=== PATIENT | female | born 1995 | race Caucasian/White ===

== ENCOUNTER 2018-03-01 06:02 | Inpatient (IN) | payer SELFPAY ==
[2018-03-01] MEDS ORDERED: Sodium Chloride 0.9% 10 ML Syringe FLUSH PRN (06:55)
[2018-03-01] MEDS ORDERED: Ondansetron 4 MG/2 ML SDV IVPUSH PRN (06:55)
[2018-03-01] MEDS ORDERED: Nalbuphine 20 MG/ML 1 ML Syringe IVPUSH PRN (06:55)
[2018-03-01] MEDS ORDERED: fentaNYL 100 MCG/2 ML SDV EPIDUR PRN (06:57)
[2018-03-01] MEDS ORDERED: diphenhydrAMINE 50 MG/ML SDV IVPUSH PRN (06:57)
--- NOTE | 2018-03-01 06:57 | PCM.LDHP ---
L&D History of Present Illness - General Date of Service: 03/01/18 Admit Problem/Dx: Patient Status Order with Admit Dx/Problem 03/01/18 06:55 Patient Status [ADT] Routine Admission Diagnosis/Problem Admission Diagnosis/Problem Normal labor Source of Information: Patient History Limitations: Reports: No Limitations - History of Present Illness Introduction:: Patient is a 23 y/o at 38 5/7 wks who presents this AM in labor. States contractions started around 0300 this AM. Otherwise doing well. No LOF. Has a history fo for breech (identified when patient in labor) and then a repeat when presented in labor as was uncertain about . Is planned for a next week, but now considering - Related Data Allergies/Adverse Reactions: Allergies Allergy/AdvReac Type Severity Reaction Status Date / Time Penicillins AdvReac Nausea Verified 03/01/18 07:01 Home Medications: Home Meds PNV95/Ferrous Fumarate/FA [ Tablet] 1 each PO DAILY 03/01/18 [History] Past Medical History [employer]ER History: Reports: : 3 Para: 2 LMP (Approximate): - Past Surgical History Female Surgical History: Reports: Section (x2) Social & Family History - Tobacco Use Smoking Status *Q: Never Smoker - Alcohol Use Alcohol Use History: No - Recreational Drug Use Recreational Drug Use: No H&P Review of Systems - Review of Systems: Review Of Systems: See Below General: Reports: No Symptoms Pulmonary: Reports: No Symptoms Cardiovascular: Reports: No Symptoms Gastrointestinal: Reports: No Symptoms Genitourinary: Reports: No Symptoms Musculoskeletal: Reports: No Symptoms Neurological: Reports: No Symptoms L&D Exam - Exam Exam: See Below - OB Specific Contraction Intensity: Moderate Movement: Active Heart Tones: Present Heart Tones per Min: 150 Heart Rate (FHR) Variability: Moderate (6-25 bmp) Presentation: Vertex - Bowie Score Bowie Score Cervix Position: Midposition Bowie Score Consistency: Soft Bowie Score Effacement: 51-70% Bowie Score Dilation: 3-4 cm Bowie Score 's Station: -2 Bowie Score Total: 8 - Exam General: Alert, Oriented, Cooperative Lungs: Clear to Auscultation, Normal Respiratory Effort Cardiovascular: Regular Rate, Regular Rhythm GI/Abdominal Exam: Soft, Non-Tender Genitourinary: Normal external exam Extremities: Normal Inspection Skin: Warm, Dry, Intact - Patient Data Result Diagrams: 03/01/18 07:00 - Problem List (1) 38 weeks gestation of SNOMED Code(s): 23148004 ICD Code: Z3A.38 - 38 WEEKS GESTATION OF Status: Acute Current Visit: Yes (2) Normal labor SNOMED Code(s): 47828642 ICD Code: O80 - ENCOUNTER FOR FULL-TERM UNCOMPLICATED DELIVERY; Z37.9 - OUTCOME OF DELIVERY, UNSPECIFIED Status: Acute Current Visit: Yes (3) History of SNOMED Code(s): 547272746 ICD Code: Z98.891 - HISTORY OF UTERINE SCAR FROM PREVIOUS SURGERY Status: Acute Current Visit: Yes (4) Desires (vaginal after ) trial SNOMED Code(s): 621159729, 801771002 ICD Code: O34.219 - MATERNAL CARE FOR UNSP TYPE SCAR FROM PREVIOUS DEL Status: Acute Current Visit: Yes Problem List Initiated/Reviewed/Updated: Yes Orders Last 24hrs: Active Orders 24 hr Category Date Time Status Patient Status [ADT] Routine ADT 03/01/18 06:55 Ordered Activity as Tolerated [RC] PFP Care 03/01/18 06:55 Ordered Communication Order [RC] ASDIRECTED Care 03/01/18 06:55 Ordered Heart Tones [RC] ASDIRECTED Care 03/01/18 06:55 Ordered Non Stress Test [RC] PER UNIT ROUTINE Care 03/01/18 06:55 Ordered Notify Provider [RC] PFP Care 03/01/18 06:55 Ordered Notify Provider [RC] PRN Care 03/01/18 06:55 Ordered Peripheral IV Care [RC] . DIRECTED Care 03/01/18 06:55 Ordered Vital Signs [RC] PER UNIT ROUTINE Care 03/01/18 06:55 Ordered Clear Liquid Diet [DIET] Diet 03/01/18 Breakfast Ordered CBC W/O DIFF,HEMOGRAM [HEME] Routine Lab 03/01/18 06:55 Ordered RAPID PLASMA REAGIN,RPR [CHEM] Routine Lab 03/01/18 06:55 Ordered TYPE AND SCREEN [BBK] Routine Lab 03/01/18 06:55 Ordered Lactated Ringers [Ringers, Lactated] 1,000 ml Med 03/01/18 07:00 Ordered IV ASDIRECTED Nalbuphine [Nubain] Med 03/01/18 06:55 Ordered 10 mg IVPUSH Q2H PRN Ondansetron [Zofran] Med 03/01/18 06:55 Ordered 4 mg IVPUSH Q4H PRN Oxytocin/Lactated Ringers [Pitocin in LR 10 Units/1,000 Med 03/01/18 07:00 Ordered ML] 10 unit in 1,000 ml IV .CONTINUOUS Sodium Chloride 0.9% [Saline Flush] Med 03/01/18 06:55 Ordered 10 ml FLUSH ASDIRECTED PRN Electronic Heart Tones Ext w TOCO [WOMSER] Ot 03/01/18 06:55 Ordered Routine Electronic Heart Tones Internal [WOMSER] Per Unit Ot 03/01/18 06:55 Ordered Routine Peripheral IV Insertion Adult [OM.PC] Routine Ot 03/01/18 06:55 Ordered Resuscitation Status Routine Resus Stat 03/01/18 06:55 Ordered Assessment/Plan Comment:: Patient presents in active labor. Reviewed options of management going forward. Does want to do a trial of labor. Aware of risks of uterine rupture. Will monitor closely. If any concerns would need to proceed with RLTCS. Labs ordered. Epidural for pain management. GBS negative, no need for antibiotics
[2018-03-01] MEDS ORDERED: Oxytocin/Lactated Ringers 10 UNIT/1,000 ML BAG IV SCH (07:00)
[2018-03-01] MEDS: Lactated Ringers 1,000 ML IV SCH ×6 (07:18→13:59)
[2018-03-01] MEDS: Bupivacaine/fentaNYL/NS 100 ML Bag EPIDUR SCH ×2 (07:39→16:25)
--- NOTE | 2018-03-01 07:44 | PCM.PREANE ---
Preanesthetic Assessment - Procedure Proposed Procedure: jefry - Anesthesia/Transfusion/Family Hx Anesthesia History: Prior Anesthesia Without Reaction Family History of Anesthesia Reaction: No Transfusion History: No Prior Transfusion(s) - Review of Systems General: No Symptoms Pulmonary: No Symptoms Cardiovascular: No Symptoms Gastrointestinal: No Symptoms Neurological: No Symptoms Other: Reports: None - Physical Assessment NPO Status Date: 03/01/18 NPO Status Time: 21:00 (ice chips today) Respiratory Rate: 18 Vital Signs: Last Vital Signs Temp 98.5 F 03/01/18 06:39 Pulse 102 H 03/01/18 06:39 Resp 18 03/01/18 06:39 BP 112/72 03/01/18 06:39 Pulse Ox Height: 5 ft 2 in Weight: 68.901 kg ASA Class: 2 Mental Status: Alert & Oriented x3 Airway Class: Mallampati = 1 Dentition: Reports: Normal Dentition Thyro-Mental Finger Breadths: 3 Mouth Opening Finger Breadths: 3 ROM/Head Extension: Full Lungs: Clear to Auscultation, Normal Respiratory Effort Cardiovascular: Regular Rate, Regular Rhythm - Lab Values: Laboratory Last Values WBC 12.68 K/mm3 (3.98-10.04) H 03/01/18 07:00 RBC 3.85 M/mm3 (3.98-5.22) L 03/01/18 07:00 Hgb 12.0 gm/L (11.2-15.7) 03/01/18 07:00 Hct 36.6 % (34.1-44.9) 03/01/18 07:00 MCV 95.1 fl (79.4-94.8) H 03/01/18 07:00 MCH 31.2 pg (25.6-32.2) 03/01/18 07:00 MCHC 32.8 g/dl (32.2-35.5) 03/01/18 07:00 RDW Std Deviation 44.6 fL (36.4-46.3) 03/01/18 07:00 Plt Count 212 K/mm3 (182-369) 03/01/18 07:00 MPV 10.0 fl (9.4-12.3) 03/01/18 07:00 - Allergies Allergies/Adverse Reactions: Allergies Allergy/AdvReac Type Severity Reaction Status Date / Time Penicillins AdvReac Nausea Verified 03/01/18 07:01 - Blood Blood Available: No - Acknowledgements Anesthesia Type Planned: Epidural Pt an Appropriate Candidate for the Planned Anesthesia: Yes Alternatives and Risks of Anesthesia Discussed w Pt/Guardian: Yes Pt/Guardian Understands and Agrees with Anesthesia Plan: Yes PreAnesthesia Questionnaire Cardiovascular History: Reports: None Respiratory History: Reports: None Gastrointestinal History: Reports: GERD (with preg) [employer]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: : 3 (38 plus weeks) Para: 2 Other OB/BYN History: 2 previous C/S Musculoskeletal History: Reports: None Oncologic (Cancer) History: Reports: None - SUBSTANCE USE Smoking Status *Q: Former Smoker (1 year- quit 5 years ago) Tobacco Use Within Last Twelve Months: No Second Hand Smoke Exposure: No Days Per Week of Alcohol Use: 0 Recreational Drug Use History: No - HOME MEDS Home Medications: Home Meds PNV95/Ferrous Fumarate/FA [ Tablet] 1 each PO DAILY 03/01/18 [History] - CURRENT (IN HOUSE) MEDS Current Meds: Current Medications Diphenhydramine HCl (Benadryl) 25 mg IVPUSH Q6H PRN PRN Reason: pruritis Ephedrine Sulfate (Ephedrine Sulfate) 5 mg IVPUSH ASDIRECTED PRN PRN Reason: Hypotension Fentanyl (Sublimaze) 100 mcg EPIDUR Q3H PRN PRN Reason: Pain Last Admin: 03/01/18 07:39 Dose: 100 mcg Fentanyl/Bupivacaine HCl (Fentanyl/Bupivacaine/Ns 2 Mcg-0.125% 100 Ml) 100 ml EPIDUR ASDIRECTED [facility] Last Admin: 03/01/18 07:39 Dose: 100 ml Lactated Ringer's (Ringers, Lactated) 1,000 mls @ 100 mls/hr IV ASDIRECTED JOELLE Last Admin: 03/01/18 07:19 Dose: 100 mls/hr Oxytocin/Lactated Ringer's (Pitocin In Lr 10 Units/1,000 Ml) 10 unit in 1,000 mls @ 500 mls/hr IV .CONTINUOUS JOELLE Nalbuphine HCl (Nubain) 10 mg IVPUSH Q2H PRN PRN Reason: pain Ondansetron HCl (Zofran) 4 mg IVPUSH Q4H PRN PRN Reason: Nausea/Vomiting Sodium Chloride (Saline Flush) 10 ml FLUSH ASDIRECTED PRN PRN Reason: Keep Vein Open
[2018-03-01] MEDS: ePHEDrine 50 MG/ML SDV IVPUSH PRN ×2 (08:52→15:40)
--- NOTE | 2018-03-01 11:52 | PCM.PNLD ---
Labor Progress Note - VS & Meds Vital Signs: Last Vital Signs Temp 36.9 C 03/01/18 06:39 Pulse 102 H 03/01/18 06:39 Resp 18 03/01/18 07:43 BP 112/72 03/01/18 06:39 Pulse Ox Active Medications: Current Medications Diphenhydramine HCl (Benadryl) 25 mg IVPUSH Q6H PRN PRN Reason: pruritis Ephedrine Sulfate (Ephedrine Sulfate) 5 mg IVPUSH ASDIRECTED PRN PRN Reason: Hypotension Last Admin: 03/01/18 08:52 Dose: 5 mg Fentanyl (Sublimaze) 100 mcg EPIDUR Q3H PRN PRN Reason: Pain Last Admin: 03/01/18 07:39 Dose: 100 mcg Fentanyl/Bupivacaine HCl (Fentanyl/Bupivacaine/Ns 2 Mcg-0.125% 100 Ml) 100 ml EPIDUR ASDIRECTED JOELLE Last Admin: 03/01/18 07:39 Dose: 100 ml Lactated Ringer's (Ringers, Lactated) 1,000 mls @ 100 mls/hr IV ASDIRECTED JOELLE Last Admin: 03/01/18 10:52 Dose: 100 mls/hr Oxytocin/Lactated Ringer's (Pitocin In Lr 10 Units/1,000 Ml) 10 unit in 1,000 mls @ 500 mls/hr IV .CONTINUOUS JOELLE Nalbuphine HCl (Nubain) 10 mg IVPUSH Q2H PRN PRN Reason: pain Ondansetron HCl (Zofran) 4 mg IVPUSH Q4H PRN PRN Reason: Nausea/Vomiting Sodium Chloride (Saline Flush) 10 ml FLUSH ASDIRECTED PRN PRN Reason: Keep Vein Open - Uterine Contractions Uterine Monitoring Mode: External [place] Contraction Intensity: Moderate to Strong - Monitoring Monitor Mode: External Ultrasound Heart Rate (FHR) Baseline: 150 Heart Rate (FHR) Variability: Moderate (6-25 bmp) Accelerations: Present, 15x15 Decelerations: Variable Strip Review: Category II - Vaginal Exam Dilation (cm): 6 Effacement (Percent): 80 Station: 0 Cervical Position: Midposition - Labor Progress (Free Text) Labor Progress: Patient doing well. Continues to make slow, but steady cervical change. Continue present management
--- NOTE | 2018-03-01 11:54 | PCM.PNLD ---
Labor Progress Note - VS & Meds Vital Signs: Last Vital Signs Temp 36.9 C 03/01/18 06:39 Pulse 102 H 03/01/18 06:39 Resp 18 03/01/18 07:43 BP 112/72 03/01/18 06:39 Pulse Ox Active Medications: Current Medications Diphenhydramine HCl (Benadryl) 25 mg IVPUSH Q6H PRN PRN Reason: pruritis Ephedrine Sulfate (Ephedrine Sulfate) 5 mg IVPUSH ASDIRECTED PRN PRN Reason: Hypotension Last Admin: 03/01/18 08:52 Dose: 5 mg Fentanyl (Sublimaze) 100 mcg EPIDUR Q3H PRN PRN Reason: Pain Last Admin: 03/01/18 07:39 Dose: 100 mcg Fentanyl/Bupivacaine HCl (Fentanyl/Bupivacaine/Ns 2 Mcg-0.125% 100 Ml) 100 ml EPIDUR ASDIRECTED JOELLE Last Admin: 03/01/18 07:39 Dose: 100 ml Lactated Ringer's (Ringers, Lactated) 1,000 mls @ 100 mls/hr IV ASDIRECTED JOELLE Last Admin: 03/01/18 10:52 Dose: 100 mls/hr Oxytocin/Lactated Ringer's (Pitocin In Lr 10 Units/1,000 Ml) 10 unit in 1,000 mls @ 500 mls/hr IV .CONTINUOUS JOELLE Nalbuphine HCl (Nubain) 10 mg IVPUSH Q2H PRN PRN Reason: pain Ondansetron HCl (Zofran) 4 mg IVPUSH Q4H PRN PRN Reason: Nausea/Vomiting Sodium Chloride (Saline Flush) 10 ml FLUSH ASDIRECTED PRN PRN Reason: Keep Vein Open - Uterine Contractions Uterine Monitoring Mode: External [place] Contraction Intensity: Moderate to Strong - Monitoring Monitor Mode: External Ultrasound Heart Rate (FHR) Baseline: 155 Heart Rate (FHR) Variability: Moderate (6-25 bmp) Accelerations: Present, 15x15 Decelerations: Late (isolated) Strip Review: Category II - Vaginal Exam Dilation (cm): 5 Effacement (Percent): 80 Station: -1 Cervical Position: Midposition - Labor Progress (Free Text) Labor Progress: Doing well. AROM performed with release of blood tinged clear fluid. Continue present management
--- NOTE | 2018-03-01 16:42 | PCM.PNLD ---
Labor Progress Note - VS & Meds Vital Signs: Last Vital Signs Temp 36.9 C 03/01/18 06:39 Pulse 102 H 03/01/18 06:39 Resp 18 03/01/18 07:43 BP 112/72 03/01/18 06:39 Pulse Ox Active Medications: Current Medications Diphenhydramine HCl (Benadryl) 25 mg IVPUSH Q6H PRN PRN Reason: pruritis Ephedrine Sulfate (Ephedrine Sulfate) 5 mg IVPUSH ASDIRECTED PRN PRN Reason: Hypotension Last Admin: 03/01/18 15:40 Dose: 5 mg Fentanyl (Sublimaze) 100 mcg EPIDUR Q3H PRN PRN Reason: Pain Last Admin: 03/01/18 07:39 Dose: 100 mcg Fentanyl/Bupivacaine HCl (Fentanyl/Bupivacaine/Ns 2 Mcg-0.125% 100 Ml) 100 ml EPIDUR ASDIRECTED JOELLE Last Admin: 03/01/18 16:25 Dose: 100 ml Lactated Ringer's (Ringers, Lactated) 1,000 mls @ 100 mls/hr IV ASDIRECTED JOELLE Last Admin: 03/01/18 13:59 Dose: 100 mls/hr Oxytocin/Lactated Ringer's (Pitocin In Lr 10 Units/1,000 Ml) 10 unit in 1,000 mls @ 500 mls/hr IV .CONTINUOUS JOELLE Nalbuphine HCl (Nubain) 10 mg IVPUSH Q2H PRN PRN Reason: pain Ondansetron HCl (Zofran) 4 mg IVPUSH Q4H PRN PRN Reason: Nausea/Vomiting Sodium Chloride (Saline Flush) 10 ml FLUSH ASDIRECTED PRN PRN Reason: Keep Vein Open - Uterine Contractions Uterine Monitoring Mode: External [place] Contraction Intensity: Moderate to Strong - Monitoring Monitor Mode: External Ultrasound Heart Rate (FHR) Baseline: 155 Heart Rate (FHR) Variability: Moderate (6-25 bmp) Accelerations: Present, 15x15 Decelerations: Variable Strip Review: Category II - Vaginal Exam Dilation (cm): 9 Effacement (Percent): 90 Station: 1 Cervical Position: Anterior - Labor Progress (Free Text) Labor Progress: Patient has made slow, but stead change throughout the day. Now feeling more pressure and with good change in station to +1-+2 station. Also 9 cm. Will recheck in another 30-45 minutes to reassess.
[2018-03-01] MEDS ORDERED: Methylergonovine 0.2 MG/1 ML Amp ONE (17:12)
[2018-03-01] MEDS ORDERED: Methylergonovine 0.2 MG/1 ML Amp IM STA (17:36)
--- NOTE | 2018-03-01 17:39 | PCM.DEL ---
L & D Note - General Info Date of Service: 03/01/18 - Delivery Note Labor: Spontaneous Delivery Outcome: Livebirth Delivery Method: Spontaneous Vaginal Delivery-Single Delivery Mode: Spontaneous Presentation: Right Occiput Anterior (NOEMY) Nuchal Cord: None Anesthesia Type: Epidural Amniotic Fluid Description: Bloody Episiotomy Type: None Laceration: 2nd Degree, Labial Suture type: Vicryl Suture size: 3-0 Placenta: Intact, Spontaneous Cord: 3 Vessels Estimated Blood Loss: 400 Resuscitation Needed: Yes : Bulb Syringe, Stimulated, Warmed, Hudgins Used, Warmer Used Score 1 min: 8 Score 5 min: 9 Delivery Comments (Free Text/Narrative):: Patient found to be complete and began pushing. With maternal pushing effort head delivered from an NOEMY presentation. No nuchal cord present. With gentle downward traction the shoulders and body delivered. Infant placed on maternal abdomen. Cord clamped and cut. cord blood obtained. Placenta allowed time to separate and expelled intact. Inspection of the perineum showed a 2nd degree vaginal and left labial laceration. These were repaired with 2-0 and 3-0 sutures respectively. - General Info Date of Service: 03/01/18 - Patient Data Vitals - Most Recent: Last Vital Signs Temp 36.9 C 03/01/18 06:39 Pulse 102 H 03/01/18 06:39 Resp 18 03/01/18 07:43 BP 112/72 03/01/18 06:39 Pulse Ox Weight - Most Recent: 68.901 kg Lab Results Last 24 Hours: Laboratory Results - last 24 hr 03/01/18 03/01/18 03/01/18 Range/Units 07:00 07:00 07:00 WBC 12.68 H (3.98-10.04) K/mm3 RBC 3.85 L (3.98-5.22) M/mm3 Hgb 12.0 (11.2-15.7) gm/L Hct 36.6 (34.1-44.9) % MCV 95.1 H (79.4-94.8) fl MCH 31.2 (25.6-32.2) pg MCHC 32.8 (32.2-35.5) g/dl RDW Std Deviation 44.6 (36.4-46.3) fL Plt Count 212 (182-369) K/mm3 MPV 10.0 (9.4-12.3) fl RPR Non-reactive (NONREACTIVE) Blood Type A POSITIVE Gel Antibody Screen Negative Med Orders - Current: Current Medications Diphenhydramine HCl (Benadryl) 25 mg IVPUSH Q6H PRN PRN Reason: pruritis Ephedrine Sulfate (Ephedrine Sulfate) 5 mg IVPUSH ASDIRECTED PRN PRN Reason: Hypotension Last Admin: 03/01/18 15:40 Dose: 5 mg Fentanyl (Sublimaze) 100 mcg EPIDUR Q3H PRN PRN Reason: Pain Last Admin: 03/01/18 07:39 Dose: 100 mcg Fentanyl/Bupivacaine HCl (Fentanyl/Bupivacaine/Ns 2 Mcg-0.125% 100 Ml) 100 ml EPIDUR ASDIRECTED JOELLE Last Admin: 03/01/18 16:25 Dose: 100 ml Lactated Ringer's (Ringers, Lactated) 1,000 mls @ 100 mls/hr IV ASDIRECTED JOELLE Last Admin: 03/01/18 13:59 Dose: 100 mls/hr Oxytocin/Lactated Ringer's (Pitocin In Lr 10 Units/1,000 Ml) 10 unit in 1,000 mls @ 500 mls/hr IV .CONTINUOUS JOELLE Last Admin: 03/01/18 17:16 Dose: 500 mls/hr Nalbuphine HCl (Nubain) 10 mg IVPUSH Q2H PRN PRN Reason: pain Ondansetron HCl (Zofran) 4 mg IVPUSH Q4H PRN PRN Reason: Nausea/Vomiting Sodium Chloride (Saline Flush) 10 ml FLUSH ASDIRECTED PRN PRN Reason: Keep Vein Open Discontinued Medications Methylergonovine Maleate (Methergine) Confirm Administered Dose 0.2 mg .ROUTE .STK-MED ONE Stop: 03/01/18 17:13 Last Admin: 03/01/18 17:17 Dose: 0.2 mg Methylergonovine Maleate (Methergine) 0.2 mg IM NOW STA Stop: 03/01/18 17:37 - Problem List & Annotations (1) 38 weeks gestation of SNOMED Code(s): 27960117 Code(s): Z3A.38 - 38 WEEKS GESTATION OF Status: Acute Current Visit: Yes (2) Normal labor SNOMED Code(s): 89040156 Code(s): O80 - ENCOUNTER FOR FULL-TERM UNCOMPLICATED DELIVERY; Z37.9 - OUTCOME OF DELIVERY, UNSPECIFIED Status: Acute Current Visit: Yes (3) History of SNOMED Code(s): 477765911 Code(s): Z98.891 - HISTORY OF UTERINE SCAR FROM PREVIOUS SURGERY Status: Acute Current Visit: Yes (4) Desires (vaginal after ) trial SNOMED Code(s): 753142969, 394360948 Code(s): O34.219 - MATERNAL CARE FOR UNSP TYPE SCAR FROM PREVIOUS DEL Status: Acute Current Visit: Yes (5) , delivered, current hospitalization SNOMED Code(s): 338792391 Code(s): O34.219 - MATERNAL CARE FOR UNSP TYPE SCAR FROM PREVIOUS DEL Status: Acute Current Visit: Yes - Problem List Review Problem List Initiated/Reviewed/Updated: Yes - My Orders Last 24 Hours: My Active Orders 03/01/18 06:55 Patient Status [ADT] Routine Activity as Tolerated [RC] PFP Communication Order [RC] ASDIRECTED Heart Tones [RC] ASDIRECTED Non Stress Test [RC] PER UNIT ROUTINE Notify Provider [RC] PFP Notify Provider [RC] PRN Peripheral IV Care [RC] . DIRECTED Vital Signs [RC] PER UNIT ROUTINE Nalbuphine [Nubain] 10 mg IVPUSH Q2H PRN Ondansetron [Zofran] 4 mg IVPUSH Q4H PRN Sodium Chloride 0.9% [Saline Flush] 10 ml FLUSH ASDIRECTED PRN Electronic Heart Tones Ext w TOCO [WOMSER] Routine Electronic Heart Tones Internal [WOMSER] Per Unit Routine Peripheral IV Insertion Adult [OM.PC] Routine Resuscitation Status Routine 03/01/18 07:00 PATIENT RETYPE [BBK] Routine TYPE AND SCREEN [BBK] Routine Lactated Ringers [Ringers, Lactated] 1,000 ml IV ASDIRECTED Oxytocin/Lactated Ringers [Pitocin in LR 10 Units/1,000 ML] 10 unit in 1,000 ml IV .CONTINUOUS 03/01/18 07:40 Insert Kwon Catheter [Insert Urinary Catheter] [OM.PC] Q24H 03/01/18 10:10 Urinary Catheter Assessment [RC] ASDIRECTED 03/01/18 17:38 Patient Status Manage Transfer [TRANSFER] Routine 03/01/18 Breakfast Clear Liquid Diet [DIET] - Assessment Assessment:: 23 y/o G3 now P3003 PPD#0 from - Plan Plan:: * Routine cares * Encourage breast feeding * Discharge home in 1-2 days
[2018-03-01] MEDS ORDERED: Acetaminophen 325 MG Tab PO PRN (17:45)
[2018-03-01] MEDS ORDERED: Benzocaine/Menthol 20%-0.5% Spray 56 GM Canister TOP PRN (17:45)
[2018-03-01] MEDS ORDERED: Docusate Sodium 100 MG Cap PO PRN (17:45)
[2018-03-01] MEDS ORDERED: Witch Hazel Medicated Pads 100/Jar TOP PRN (17:45)
[2018-03-01] MEDS ORDERED: Oxytocin/Lactated Ringers 10 UNIT/1,000 ML BAG IV ONE (18:52)
[2018-03-01] MEDS ORDERED: Oxytocin/Lactated Ringers 10 UNIT/1,000 ML BAG IV STA (19:08)
[2018-03-01] MEDS ORDERED: Bupivacaine 0.25% 10 ML SDV ONE (22:00)
[2018-03-01] MEDS ORDERED: ePHEDrine 50 MG/ML SDV ONE (22:00)
[2018-03-01] MEDS ORDERED: Phenylephrine 1% 10 MG/ML SDV ONE (22:00)
[2018-03-02] MEDS: Ibuprofen 600 MG Tab PO PRN ×4 (02:27→22:23)
--- NOTE | 2018-03-02 06:54 | PCM.PNPP ---
- General Info Date of Service: 03/02/18 Functional Status: Reports: Pain Controlled, Tolerating Diet, Ambulating, Urinating - Review of Systems General: Reports: No Symptoms Pulmonary: Reports: No Symptoms Cardiovascular: Reports: No Symptoms Gastrointestinal: Reports: No Symptoms Genitourinary: Reports: No Symptoms Musculoskeletal: Reports: No Symptoms - Patient Data Vital Signs - Most Recent: Last Vital Signs Temp 36.2 C 03/02/18 02:30 Pulse 108 H 03/02/18 02:30 Resp 16 03/02/18 02:30 BP 120/63 03/02/18 02:30 Pulse Ox 98 03/02/18 02:30 Weight - Most Recent: 68.901 kg I&O - Last 24 Hours: Intake & Output 03/01/18 03/01/18 03/02/18 14:59 22:59 06:59 Intake Total 480 Output Total 1250 Balance -1250 480 Lab Results - Last 24 Hours: Laboratory Results - last 24 hr 03/01/18 03/01/18 03/01/18 Range/Units 07:00 07:00 07:00 WBC 12.68 H (3.98-10.04) K/mm3 RBC 3.85 L (3.98-5.22) M/mm3 Hgb 12.0 (11.2-15.7) gm/L Hct 36.6 (34.1-44.9) % MCV 95.1 H (79.4-94.8) fl MCH 31.2 (25.6-32.2) pg MCHC 32.8 (32.2-35.5) g/dl RDW Std Deviation 44.6 (36.4-46.3) fL Plt Count 212 (182-369) K/mm3 MPV 10.0 (9.4-12.3) fl RPR Non-reactive (NONREACTIVE) Blood Type A POSITIVE Gel Antibody Screen Negative Med Orders - Current: Current Medications Acetaminophen (Tylenol) 650 mg PO Q4H PRN PRN Reason: mild pain or fever Benzocaine/Menthol (Dermoplast Pain Relief [place]) 0 gm TOP ASDIRECTED PRN PRN Reason: Perineal Comfort Measure Last Admin: 03/01/18 20:39 Dose: 1 canister Docusate Sodium (Colace) 100 mg PO BID PRN PRN Reason: Constipation Emollient Ointment (Lansinoh Hpa) 0 gm TOP ASDIRECTED PRN PRN Reason: Sore Nipples Ibuprofen (Motrin) 600 mg PO Q6H PRN PRN Reason: Mild pain or fever Last Admin: 03/02/18 02:27 Dose: 600 mg Witch Linnea (Tucks) 1 pad TOP ASDIRECTED PRN PRN Reason: Hemorrhoid pain Last Admin: 03/01/18 20:38 Dose: 1 canister Discontinued Medications Diphenhydramine HCl (Benadryl) 25 mg IVPUSH Q6H PRN PRN Reason: pruritis Ephedrine Sulfate (Ephedrine Sulfate) 5 mg IVPUSH ASDIRECTED PRN PRN Reason: Hypotension Last Admin: 03/01/18 15:40 Dose: 5 mg Fentanyl (Sublimaze) 100 mcg EPIDUR Q3H PRN PRN Reason: Pain Last Admin: 03/01/18 07:39 Dose: 100 mcg Fentanyl/Bupivacaine HCl (Fentanyl/Bupivacaine/Ns 2 Mcg-0.125% 100 Ml) 100 ml EPIDUR ASDIRECTED JOELLE Last Admin: 03/01/18 16:25 Dose: 100 ml Lactated Ringer's (Ringers, Lactated) 1,000 mls @ 100 mls/hr IV ASDIRECTED JOELLE Last Admin: 03/01/18 13:59 Dose: 100 mls/hr Oxytocin/Lactated Ringer's (Pitocin In Lr 10 Units/1,000 Ml) 10 unit in 1,000 mls @ 500 mls/hr IV .CONTINUOUS JOELLE Last Admin: 03/01/18 17:16 Dose: 500 mls/hr Oxytocin/Lactated Ringer's (Pitocin In Lr 10 Units/1,000 Ml) Confirm Administered Dose 10 unit in 1,000 mls @ as directed IV .STK-MED ONE Stop: 03/01/18 18:53 Last Admin: 03/01/18 19:00 Dose: 200 mls/hr Oxytocin/Lactated Ringer's (Pitocin In Lr 10 Units/1,000 Ml) 10 unit in 1,000 mls @ 200 mls/hr IV NOW STA Stop: 03/02/18 00:07 Methylergonovine Maleate (Methergine) Confirm Administered Dose 0.2 mg .ROUTE .STK-MED ONE Stop: 03/01/18 17:13 Last Admin: 03/01/18 17:17 Dose: 0.2 mg Methylergonovine Maleate (Methergine) 0.2 mg IM NOW STA Stop: 03/01/18 17:37 Nalbuphine HCl (Nubain) 10 mg IVPUSH Q2H PRN PRN Reason: pain Ondansetron HCl (Zofran) 4 mg IVPUSH Q4H PRN PRN Reason: Nausea/Vomiting Sodium Chloride (Saline Flush) 10 ml FLUSH ASDIRECTED PRN PRN Reason: Keep Vein Open - Infant Interaction Disposition, : in Room with Family Interaction: Holding Infant Infant Feeding: Breastfed ; Nursed Well Support Person: - Recovery Exam Fundal Tone: Firm Fundal Level: At Umbilicus Fundal Placement: Midline Lochia Amount: Small, Moderate Lochia Color: Rubra/Red Perineum Description: Edematous Episiotomy/Laceration: Approximated Bladder Status: Voiding Urinary Elimination: Voided - Exam General: Alert, Oriented, Cooperative GI/Abdominal Exam: Soft, Non-Tender Extremities: Normal Inspection Skin: Warm, Dry, Intact - Problem List & Annotations (1) 38 weeks gestation of SNOMED Code(s): 51775911 Code(s): Z3A.38 - 38 WEEKS GESTATION OF Status: Acute Current Visit: Yes (2) Normal labor SNOMED Code(s): 86427994 Code(s): O80 - ENCOUNTER FOR FULL-TERM UNCOMPLICATED DELIVERY; Z37.9 - OUTCOME OF DELIVERY, UNSPECIFIED Status: Acute Current Visit: Yes (3) History of SNOMED Code(s): 672750455 Code(s): Z98.891 - HISTORY OF UTERINE SCAR FROM PREVIOUS SURGERY Status: Acute Current Visit: Yes (4) Desires (vaginal after ) trial SNOMED Code(s): 886513513, 341690393 Code(s): O34.219 - MATERNAL CARE FOR UNSP TYPE SCAR FROM PREVIOUS DEL Status: Acute Current Visit: Yes (5) , delivered, current hospitalization SNOMED Code(s): 793474042 Code(s): O34.219 - MATERNAL CARE FOR UNSP TYPE SCAR FROM PREVIOUS DEL Status: Acute Current Visit: Yes - Problem List Review Problem List Initiated/Reviewed/Updated: Yes - My Orders Last 24 Hours: My Active Orders 03/01/18 06:55 Heart Tones [RC] ASDIRECTED Peripheral IV Care [RC] . DIRECTED Resuscitation Status Routine 03/01/18 17:45 Activity as Tolerated [RC] PER UNIT ROUTINE Vital Signs [RC] 03,09,15,21 Acetaminophen [Tylenol] 650 mg PO Q4H PRN Benzocaine/Menthol [Dermoplast Pain Relief [place]] See Dose Instructions TOP ASDIRECTED PRN Docusate Sodium [Colace] 100 mg PO BID PRN Ibuprofen [Motrin] 600 mg PO Q6H PRN Lanolin [Lansinoh HPA] See Dose Instructions TOP ASDIRECTED PRN Witch Linnea [Tucks] 1 pad TOP ASDIRECTED PRN Assess Lochia [WOMSER] Per Unit Routine Assess Uterine Involution [WOMSER] Per Unit Routine Breast Pump [WOMSER] Per Unit Routine Heat Therapy [OM.PC] PRN Ice Therapy [OM.PC] Per Unit Routine Perineal Care [OM.PC] Per Unit Routine Peripheral IV Discontinue [OM.PC] Routine Sitz Bath [OM.PC] Per Unit Routine 03/01/18 19:15 Urinary Catheter Insertion [Insert Urinary Catheter] [OM.PC] Q24H 03/01/18 Dinner Regular Diet [DIET] 03/02/18 17:45 Heat Therapy [OM.PC] PRN - Assessment Assessment:: 23 y/o G3 now P3003 PPD#1 from - Plan Plan:: * Routine cares * Encourage breast feeding * Discharge home late today vs tomorrow depending upon patient preference
[2018-03-02] MEDS: Lanolin 100% Cream 7 GM Tube TOP PRN (08:41)
--- NOTE | 2018-03-02 10:09 | PCM48HPAN ---
Post Anesthesia Note - EVALUATION WITHIN 48HRS OF ANESTHETIC Vital Signs in Normal Range: Yes Patient Participated in Evaluation: Yes Respiratory Function Stable: Yes Airway Patent: Yes Cardiovascular Function Stable: Yes Hydration Status Stable: Yes Pain Control Satisfactory: Yes Nausea and Vomiting Control Satisfactory: Yes Mental Status Recovered: Yes - COMMENTS/OBSERVATIONS Free Text/Narrative:: Jimena has some mild back soreness. No complications noted. She has no further questions at this time.
[2018-03-03] MEDS: Lanolin 100% Cream 7 GM Tube TOP PRN (05:20)
[2018-03-03] MEDS: Ibuprofen 600 MG Tab PO PRN (05:22)
--- NOTE | 2018-03-03 06:58 | PCM.DCSUM1 ---
Discharge Summary - Discharge Data Discharge Date: 03/03/18 Discharge Disposition: Home, Self-Care 01 Condition: Good - Discharge Diagnosis/Problem(s) (1) 38 weeks gestation of SNOMED Code(s): 61042873 ICD Code: Z3A.38 - 38 WEEKS GESTATION OF Status: Acute Current Visit: Yes (2) Normal labor SNOMED Code(s): 14161175 ICD Code: O80 - ENCOUNTER FOR FULL-TERM UNCOMPLICATED DELIVERY; Z37.9 - OUTCOME OF DELIVERY, UNSPECIFIED Status: Acute Current Visit: Yes (3) History of SNOMED Code(s): 794652187 ICD Code: Z98.891 - HISTORY OF UTERINE SCAR FROM PREVIOUS SURGERY Status: Acute Current Visit: Yes (4) Desires (vaginal after ) trial SNOMED Code(s): 235963581, 280731776 ICD Code: O34.219 - MATERNAL CARE FOR UNSP TYPE SCAR FROM PREVIOUS DEL Status: Acute Current Visit: Yes (5) , delivered, current hospitalization SNOMED Code(s): 105375764 ICD Code: O34.219 - MATERNAL CARE FOR UNSP TYPE SCAR FROM PREVIOUS DEL Status: Acute Current Visit: Yes - Patient Summary/Data Complications: None Consults: None Recommended Follow-up Testing/Procedures: Follow up in 3-6 weeks or check Hospital Course: 23 y/o presented at 38 5/7 wks in labor. Patient had a history of 2 prior c-sections and was counseled on options of TOLAC vs proceeding with RLTCS. Ultimately she elected to proceed with TOLAC. She progressed well with only AROM for augmentation. She achieved complete dilation and underwent a rapid . See delivery note for full details. she did well and was discharged home on PPD#2 - Patient Instructions Diet: Regular Diet as Tolerated Activity: As Tolerated Driving: May Drive Today Showering/Bathing: May Shower Showering/Bathing, Other: May Bathe Notify Provider of: Fever, Increased Pain, Swelling and Redness, Drainage, Nausea and/or Vomiting - Discharge Plan *PRESCRIPTION DRUG MONITORING PROGRAM REVIEWED*: Not Applicable *COPY OF PRESCRIPTION DRUG MONITORING REPORT IN PATIENT SHERLY: Not Applicable Home Medications: Home Meds PNV95/Ferrous Fumarate/FA [ Tablet] 1 each PO DAILY 03/01/18 [History] Docusate Sodium [Colace] 100 mg PO BID PRN cap 03/02/18 [Rx] Ibuprofen [Motrin] 600 mg PO Q6H PRN tablet 03/02/18 [Rx] Patient Handouts: Home Care Instructions for Mom, Tips for a Good Latch Referrals: Sharmila Reveles MD [Primary Care Provider] - (3-6 weeks for check ) - Discharge Summary/Plan Comment DC Time >30 min.: No - Patient Data Vitals - Most Recent: Last Vital Signs Temp 36.7 C 03/03/18 03:17 Pulse 87 03/03/18 03:17 Resp 14 03/03/18 03:17 BP 107/54 L 03/03/18 03:17 Pulse Ox 100 03/03/18 03:17 Weight - Most Recent: 68.901 kg I&O - Last 24 hours: Intake & Output 03/02/18 03/02/18 03/03/18 14:59 22:59 06:59 Intake Total 120 60 Balance 120 60 Med Orders - Current: Current Medications Acetaminophen (Tylenol) 650 mg PO Q4H PRN PRN Reason: mild pain or fever Benzocaine/Menthol (Dermoplast Pain Relief [place]) 0 gm TOP ASDIRECTED PRN PRN Reason: Perineal Comfort Measure Last Admin: 03/01/18 20:39 Dose: 1 canister Docusate Sodium (Colace) 100 mg PO BID PRN PRN Reason: Constipation Last Admin: 03/02/18 08:41 Dose: 100 mg Emollient Ointment (Lansinoh Hpa) 0 gm TOP ASDIRECTED PRN PRN Reason: Sore Nipples Last Admin: 03/03/18 05:20 Dose: 1 tube Ibuprofen (Motrin) 600 mg PO Q6H PRN PRN Reason: Mild pain or fever Last Admin: 03/03/18 05:22 Dose: 600 mg Witch Linnea (Tucks) 1 pad TOP ASDIRECTED PRN PRN Reason: Hemorrhoid pain Last Admin: 03/01/18 20:38 Dose: 1 canister Discontinued Medications Bupivacaine HCl (Sensorcaine-Mpf 0.25%) 10 ml .ROUTE .STK-MED ONE Stop: 03/01/18 22:01 Diphenhydramine HCl (Benadryl) 25 mg IVPUSH Q6H PRN PRN Reason: pruritis Ephedrine Sulfate (Ephedrine Sulfate) 5 mg IVPUSH ASDIRECTED PRN PRN Reason: Hypotension Last Admin: 03/01/18 15:40 Dose: 5 mg Ephedrine Sulfate (Ephedrine Sulfate) 100 mg .ROUTE .STK-MED ONE Stop: 03/01/18 22:01 Fentanyl (Sublimaze) 100 mcg EPIDUR Q3H PRN PRN Reason: Pain Last Admin: 03/01/18 07:39 Dose: 100 mcg Fentanyl/Bupivacaine HCl (Fentanyl/Bupivacaine/Ns 2 Mcg-0.125% 100 Ml) 100 ml EPIDUR ASDIRECTED JOELLE Last Admin: 03/01/18 16:25 Dose: 100 ml Lactated Ringer's (Ringers, Lactated) 1,000 mls @ 100 mls/hr IV ASDIRECTED JOELLE Last Admin: 03/01/18 13:59 Dose: 100 mls/hr Oxytocin/Lactated Ringer's (Pitocin In Lr 10 Units/1,000 Ml) 10 unit in 1,000 mls @ 500 mls/hr IV .CONTINUOUS JOELLE Last Admin: 03/01/18 17:16 Dose: 500 mls/hr Oxytocin/Lactated Ringer's (Pitocin In Lr 10 Units/1,000 Ml) Confirm Administered Dose 10 unit in 1,000 mls @ as directed IV .STK-MED ONE Stop: 03/01/18 18:53 Last Admin: 03/01/18 19:00 Dose: 200 mls/hr Oxytocin/Lactated Ringer's (Pitocin In Lr 10 Units/1,000 Ml) 10 unit in 1,000 mls @ 200 mls/hr IV NOW STA Stop: 03/02/18 00:07 Last Admin: 03/02/18 12:49 Dose: Not Given Methylergonovine Maleate (Methergine) Confirm Administered Dose 0.2 mg .ROUTE .STK-MED ONE Stop: 03/01/18 17:13 Last Admin: 03/01/18 17:17 Dose: 0.2 mg Methylergonovine Maleate (Methergine) 0.2 mg IM NOW STA Stop: 03/01/18 17:37 Last Admin: 03/02/18 12:49 Dose: Not Given Nalbuphine HCl (Nubain) 10 mg IVPUSH Q2H PRN PRN Reason: pain Ondansetron HCl (Zofran) 4 mg IVPUSH Q4H PRN PRN Reason: Nausea/Vomiting Phenylephrine HCl (William-Synephrine) 10 mg .ROUTE .[facility]-MED ONE Stop: 03/01/18 22:01 Sodium Chloride (Saline Flush) 10 ml FLUSH ASDIRECTED PRN PRN Reason: Keep Vein Open
--- NOTE | 2018-03-03 06:58 | PCM.PNPP ---
- General Info Date of Service: 03/03/18 Functional Status: Reports: Pain Controlled, Tolerating Diet, Ambulating, Urinating - Review of Systems General: Reports: No Symptoms Pulmonary: Reports: No Symptoms Cardiovascular: Reports: No Symptoms Gastrointestinal: Reports: No Symptoms Genitourinary: Reports: No Symptoms Musculoskeletal: Reports: No Symptoms - Patient Data Vital Signs - Most Recent: Last Vital Signs Temp 36.7 C 03/03/18 03:17 Pulse 87 03/03/18 03:17 Resp 14 03/03/18 03:17 BP 107/54 L 03/03/18 03:17 Pulse Ox 100 03/03/18 03:17 Weight - Most Recent: 68.901 kg I&O - Last 24 Hours: Intake & Output 03/02/18 03/02/18 03/03/18 14:59 22:59 06:59 Intake Total 120 60 Balance 120 60 Med Orders - Current: Current Medications Acetaminophen (Tylenol) 650 mg PO Q4H PRN PRN Reason: mild pain or fever Benzocaine/Menthol (Dermoplast Pain Relief [place]) 0 gm TOP ASDIRECTED PRN PRN Reason: Perineal Comfort Measure Last Admin: 03/01/18 20:39 Dose: 1 canister Docusate Sodium (Colace) 100 mg PO BID PRN PRN Reason: Constipation Last Admin: 03/02/18 08:41 Dose: 100 mg Emollient Ointment (Lansinoh Hpa) 0 gm TOP ASDIRECTED PRN PRN Reason: Sore Nipples Last Admin: 03/03/18 05:20 Dose: 1 tube Ibuprofen (Motrin) 600 mg PO Q6H PRN PRN Reason: Mild pain or fever Last Admin: 03/03/18 05:22 Dose: 600 mg Witch Linnea (Tucks) 1 pad TOP ASDIRECTED PRN PRN Reason: Hemorrhoid pain Last Admin: 03/01/18 20:38 Dose: 1 canister Discontinued Medications Bupivacaine HCl (Sensorcaine-Mpf 0.25%) 10 ml .ROUTE .STK-MED ONE Stop: 03/01/18 22:01 Diphenhydramine HCl (Benadryl) 25 mg IVPUSH Q6H PRN PRN Reason: pruritis Ephedrine Sulfate (Ephedrine Sulfate) 5 mg IVPUSH ASDIRECTED PRN PRN Reason: Hypotension Last Admin: 03/01/18 15:40 Dose: 5 mg Ephedrine Sulfate (Ephedrine Sulfate) 100 mg .ROUTE .STK-MED ONE Stop: 03/01/18 22:01 Fentanyl (Sublimaze) 100 mcg EPIDUR Q3H PRN PRN Reason: Pain Last Admin: 03/01/18 07:39 Dose: 100 mcg Fentanyl/Bupivacaine HCl (Fentanyl/Bupivacaine/Ns 2 Mcg-0.125% 100 Ml) 100 ml EPIDUR ASDIRECTED JOELLE Last Admin: 03/01/18 16:25 Dose: 100 ml Lactated Ringer's (Ringers, Lactated) 1,000 mls @ 100 mls/hr IV ASDIRECTED [facility] Last Admin: 03/01/18 13:59 Dose: 100 mls/hr Oxytocin/Lactated Ringer's (Pitocin In Lr 10 Units/1,000 Ml) 10 unit in 1,000 mls @ 500 mls/hr IV .CONTINUOUS [facility] Last Admin: 03/01/18 17:16 Dose: 500 mls/hr Oxytocin/Lactated Ringer's (Pitocin In Lr 10 Units/1,000 Ml) Confirm Administered Dose 10 unit in 1,000 mls @ as directed IV .STK-MED ONE Stop: 03/01/18 18:53 Last Admin: 03/01/18 19:00 Dose: 200 mls/hr Oxytocin/Lactated Ringer's (Pitocin In Lr 10 Units/1,000 Ml) 10 unit in 1,000 mls @ 200 mls/hr IV NOW STA Stop: 03/02/18 00:07 Last Admin: 03/02/18 12:49 Dose: Not Given Methylergonovine Maleate (Methergine) Confirm Administered Dose 0.2 mg .ROUTE .STK-MED ONE Stop: 03/01/18 17:13 Last Admin: 03/01/18 17:17 Dose: 0.2 mg Methylergonovine Maleate (Methergine) 0.2 mg IM NOW STA Stop: 03/01/18 17:37 Last Admin: 03/02/18 12:49 Dose: Not Given Nalbuphine HCl (Nubain) 10 mg IVPUSH Q2H PRN PRN Reason: pain Ondansetron HCl (Zofran) 4 mg IVPUSH Q4H PRN PRN Reason: Nausea/Vomiting Phenylephrine HCl (William-Synephrine) 10 mg .ROUTE .STK-MED ONE Stop: 03/01/18 22:01 Sodium Chloride (Saline Flush) 10 ml FLUSH ASDIRECTED PRN PRN Reason: Keep Vein Open - Infant Interaction Infant Disposition, : [place] in Room with Family Infant Interaction: Holding Feeding: Breastfed Infant; Nursed Well Support Person: - Recovery Exam Fundal Tone: Firm Fundal Level: 1 Fingerbreadths Below Umbilicus Fundal Placement: Midline Lochia Amount: Small Lochia Color: Rubra/Red Perineum Description: Edematous Episiotomy/Laceration: Approximated Bladder Status: Voiding Urinary Elimination: Voided - Exam General: Alert, Oriented, Cooperative GI/Abdominal Exam: Soft, Non-Tender Extremities: Normal Inspection Skin: Warm, Dry, Intact - Problem List & Annotations (1) 38 weeks gestation of SNOMED Code(s): 36499129 Code(s): Z3A.38 - 38 WEEKS GESTATION OF Status: Acute Current Visit: Yes (2) Normal labor SNOMED Code(s): 27954797 Code(s): O80 - ENCOUNTER FOR FULL-TERM UNCOMPLICATED DELIVERY; Z37.9 - OUTCOME OF DELIVERY, UNSPECIFIED Status: Acute Current Visit: Yes (3) History of SNOMED Code(s): 915191335 Code(s): Z98.891 - HISTORY OF UTERINE SCAR FROM PREVIOUS SURGERY Status: Acute Current Visit: Yes (4) Desires (vaginal after ) trial SNOMED Code(s): 141744131, 742033522 Code(s): O34.219 - MATERNAL CARE FOR UNSP TYPE SCAR FROM PREVIOUS DEL Status: Acute Current Visit: Yes (5) , delivered, current hospitalization SNOMED Code(s): 145312335 Code(s): O34.219 - MATERNAL CARE FOR UNSP TYPE SCAR FROM PREVIOUS DEL Status: Acute Current Visit: Yes - Problem List Review Problem List Initiated/Reviewed/Updated: Yes - My Orders Last 24 Hours: My Active Orders 03/02/18 17:45 Heat Therapy [OM.PC] PRN 03/03/18 06:58 Ready for Discharge [RC] PER UNIT ROUTINE - Assessment Assessment:: 23 y/o G3 now P3003 PPD#2 from - Plan Plan:: * Routine cares * Encourage breast feeding * Discharge home today
== END 2018-03-03 13:20 | disposition home or self-care (01) | DRG 775 ==
LOC: JD.OBCHECK 06:02 → JD.OB 06:02 → JD.OBCHECK 06:55 → JD.OB 06:55 → OBSVTOIN 17:06 → JD.OB 17:07
PROVIDERS: ADMIT Obstetrics & Gynecology; ATTEND Obstetrics & Gynecology
PROC: 0UQMXZZ Repair Vulva, External Approach (ICD-10-PCS; principal; 2018-03-01)
PROC: 0KQM0ZZ Repair Perineum Muscle, Open Approach (ICD-10-PCS; principal; 2018-03-01)
PROC: 10907ZC Drainage of Amniotic Fluid, Therapeutic from Products of Conception, Via Natural or Artificial Opening (ICD-10-PCS; principal; 2018-03-01)
PROC: 10E0XZZ Delivery of Products of Conception, External Approach (ICD-10-PCS; principal; 2018-03-01)
PROC: 6A550ZT Pheresis of Cord Blood Stem Cells, Single (ICD-10-PCS; principal; 2018-03-01)
PROC: 00HU33Z Insertion of Infusion Device into Spinal Canal, Percutaneous Approach (ICD-10-PCS; 2018-03-01)
PROC: 3E0R3BZ Introduction of Anesthetic Agent into Spinal Canal, Percutaneous Approach (ICD-10-PCS; 2018-03-01)
DX: O34.219 Maternal care for unspecified type scar from previous cesarean delivery (principal); N85.8 Other specified noninflammatory disorders of uterus; Z3A.38 38 weeks gestation of pregnancy; Z37.0 Single live birth; Z88.0 Allergy status to penicillin; O70.1 Second degree perineal laceration during delivery; Z87.891 Personal history of nicotine dependence
CPT/HCPCS: 01967; 36415; 51701; 51702; 59025; 59300; 59409; 85027; 86592; 86850; 86900; 86901; A9270-GY; J2210; J2370; J2590; J3010; J3490; J7120